=== PATIENT | female | born 1955 | race Two or more races ===

== ENCOUNTER 2023-10-12 07:28 | Emergency (ER) | payer OTHER, MEDICAID ==
[~2023-10-12] VITALS: Ht 152.4 cm; Wt 50.0 kg
[2023-10-12 13:21] LABS: Basophils # (auto) 0 10 ^3/uL (0-0.2); Basophils % (auto) 0.6 % (0.0-2.0); Eosinophils # (auto) 0 10 ^3/uL (0-0.8); Eosinophils % (auto) 0.6 % (0.0-7.0); Hematocrit 42.9 % (36.0-46.0); Hemoglobin 14.6 g/dL (12.2-16.2); Lymphocytes # (auto) 1.1 10 ^3/uL (0.4-5.4); Lymphocytes % (auto) 16.2 % (10.0-50.0); Mean Corpuscular Hemoglobin 30.6 pg (28.0-32.0); Mean Corpuscular Hgb Conc. 34.1 g/dL (32.0-36.0); Mean Corpuscular Volume 89.7 fL (80.0-100.0); Monocytes # (auto) 0.4 10 ^3/uL (0-1.3); Monocytes % (auto) 6.3 % (0.0-12.0); Neutrophils # (auto) 5.1 10 ^3/uL (1.6-8.6); Neutrophils % (auto) 76.3 % (37.0-80.0); Red Blood Cells 4.79 10^6/uL (4.0-5.20); Red Cell Distribution Width 13.6 % (11.8-14.3); White Blood Cell 6.7 10^3/uL (4.4-10.8)
[2023-10-12 13:31] LABS: Anion Gap 7 (5-15); Carbon Dioxide 26 mmol/L (20-30); Chloride 106 mmol/L (98-107); Potassium 4.2 mmol/L (3.5-5.1); Sodium 139 mmol/L (136-145)
[2023-10-12 13:32] LABS: Calcium 9.7 mg/dL (8.5-10.1)
[2023-10-12 13:37] LABS: BUN/Creatinine Ratio 21.1 (10.0-20.0); Blood Urea Nitrogen 12 mg/dL (9-23); Glucose 90 mg/dL (74-106)
[2023-10-12 20:05] LABS: Erythrocyte Sedimentation Rate 19 mm/hr (0-20)
[2023-10-12] MEDS: ACETAMINOPHEN 500 MG TAB PO ONE (20:20)
[2023-10-12] MEDS: ONDANSETRON ODT 4 MG TAB PO ONE (20:21)
[2023-10-12 20:26] VITALS: BP 128/83; PULSE 96; RESP 16; TEMP 93.3; O2SAT 94
== END 2023-10-12 20:50 | disposition left against medical advice (07) ==
LOC: EDBD 07:28 → ER 07:28
DX: G93.0 Cerebral cysts (principal); J45.909 Unspecified asthma, uncomplicated; Z79.899 Other long term (current) drug therapy
CPT/HCPCS: 36415; 70450; 80048; 82962; 85025; 85652; 86141; 99284; Q0162